=== PATIENT | female | born 1950 | race Caucasian/White ===

== ENCOUNTER → 2018-04-26 | Outpatient (CLI) | payer MEDICARE, BC ==
[~2018-04-26] MED LIST: ADVAIR 250/28 DISKU1 IH; BENADRYL25 MG PO; CRESTOR5 MG PO; FLUOCINONIDE TP; HYOMAX0.125 MG PO; LACTULOSE SYRUP1 ML PO; LEVOTHYROXIN0.137 MG PO; OMEPRAZOLE20 MG PO; PROMETRIUM200 MG PO; ULTRAM50 MG PO; ZOFRAN 4MG T4 MG/TAB PO; [UNRECOGNIZED DRUG - OTHER] PO
== END ==
LOC: MC.RAD 15:00
DX: Z12.31 Encounter for screening mammogram for malignant neoplasm of breast (principal)

== ENCOUNTER → 2019-05-23 | Outpatient (CLI) | payer MEDICARE, BC ==
[~2019-05-23] MED LIST changes: +CELEBREX 200MG200 MG PO; +CIPRO 500MG TA500 MG PO; +ELOCON0.1% TP; +FLAGYL500 MG PO; +NORCO 325 MG-51 TAB PO; +REMERON 15M15 MG/TA1 PO; +RHINOCORT0.032 MG/1 NS; +TIROSINT50 MC1 PO; +TIROSINT75 MC1 PO; +ULTRAM 50MG TAB50 MG PO
== END ==
LOC: MC.RAD 08:16
DX: Z12.31 Encounter for screening mammogram for malignant neoplasm of breast (principal); Z98.890 Other specified postprocedural states

== ENCOUNTER 2019-10-10 14:00 | Observation (INO) | payer MEDICARE, BC ==
[~2019-10-10] VITALS: Ht 165.1 cm; Wt 100.0 kg
--- NOTE | 2019-10-10 04:30 | NUR ---
Patient in bed, awake. States pain 7/10 after prn morphine. Declines medication. Denies further needs at this time. Will continue to monitor.
[2019-10-10 14:59] VITALS: BP 158/85; PULSE 98
[2019-10-10 14:59] LABS: ALANINE AMINOTRANSFERASE 90 U/L (9-52); ALKALINE PHOSPHATASE 95 U/L (50-136); ANION GAP 9 mmol/L (7-16); AST,SGOT 95 U/L (15-37); BILIRUBIN,TOTAL 0.9 mg/dL (0.0-1.0); BLOOD UREA NITROGEN 19 mg/dL (7-17); CALCIUM 8.8 mg/dL (8.4-10.2); CARBON DIOXIDE 26 mmol/L (22-30); CHLORIDE 106 mmol/L (98-107); CREATININE, serum 0.74 (0.52-1.25); GLUCOSE 110 mg/dL (74-106); LIPASE 61 U/L (23-300); MAGNESIUM 1.7 mg/dL (1.6-2.3); POTASSIUM 3.6 mmol/L (3.4-5.0); SODIUM 141 mmol/L (137-145)
[2019-10-10 15:13] LABS: TROPONIN-I < 0.012 ng/mL (0.000-0.035)
[2019-10-10 15:21] LABS: BASO % 0.1 % (0.0-2.0); EOS % 0.2 % (0-4.0); GRAN # 7.4 (1.4-6.5); GRAN % 89.7 % (42.2-75.2); HEMATOCRIT 39.4 % (37.0-47.0); HEMOGLOBIN 12.7 g/dl (12.5-16.0); LYMPH # 0.5 (1.2-3.4); LYMPH % 6.5 % (20.0-51.0); MEAN CELL VOLUME 96 fl (80.0-100.0); MEAN CORPUSCULAR HEMOGLOBIN 31 pg (27.0-31.0); MEAN CORPUSCULAR HGB CONC 32 g/dl (33.0-37.0); MEAN PLATELET VOLUME 9.1 fl (7.4-10.4); MONO # 0.3 (0.1-0.6); MONO % 3.3 % (1.7-9.3); PLATELET COUNT 230 K/mm3 (130-400); RED BLOOD COUNT 4.12 M/mm3 (4.10-5.30); REDCELL DISTRIBUTION WIDTH-CV 16.1 % (11.5-14.5)
[2019-10-10 15:33] LABS: INR 1.1 (0.8-3.0); PROTHROMBIN TIME 12.3 SECONDS (9.7-12.8)
[2019-10-10 15:36] LABS: PARTIAL THROMBOPLASTIN TIME 29.1 SECONDS (26.0-37.0)
[2019-10-10 16:11] LABS: COLLECTION METHOD CLEAN CATCH
[2019-10-10] MEDS ORDERED: SINGULAIR 110 MG/TAB PO (16:37)
[2019-10-10] MEDS ORDERED: PAXIL 10MG10 MG PO (16:38)
[2019-10-10] MEDS ORDERED: VITAMIN B COMPL1 SGL PO (16:38)
[2019-10-10] MEDS ORDERED: TOBRADEX EYE DRO5 ML OS (16:39)
[2019-10-10] MEDS ORDERED: MELATONIN3 M1 (16:39)
[2019-10-10] MEDS ORDERED: DHEA 50 MG TAB1 EACH PO (16:39)
[2019-10-10] MEDS ORDERED: MSM1000 MG (16:40)
[2019-10-10] MEDS ORDERED: MULTI VITAMINS1 TAB PO (16:41)
[2019-10-10] MEDS ORDERED: VITAMIND3 5000 (16:41)
[2019-10-10] MEDS ORDERED: PROBIOTIC FORMU1 CAP PO (16:41)
[2019-10-10 17:16] LABS: PH 6 (5-8); SQUAMOUS EPITHELIAL 0-2 /hpf; URINE APPEARANCE Hazy; URINE BACTERIA None Seen /hpf; URINE BILIRUBIN Negative (NEGATIVE); URINE BLOOD Negative (NEGATIVE); URINE COLOR Yellow; URINE GLUCOSE Negative (NEGATIVE); URINE KETONE Negative (NEGATIVE); URINE LEUKOCYTE ESTERASE Negative (NEGATIVE); URINE NITRATE Negative (NEGATIVE); URINE PROTEIN(semi-quant) Negative (NEGATIVE); URINE RBC 0-2 /hpf; URINE UROBILINOGEN Negative (NEGATIVE)
--- NOTE | 2019-10-10 19:22 | NUR ---
1820: Patient admitted to room 351 from ER. Upon arival A/o x 4. C/O ABD pain bilateral low quadrants rating at 5 on 0-10 numerical pain scale. See EMAR for medication administered. Medications, allergies, and reason for hospitalization reviewed with patient. All questions and concerns addressed. Oriented to room. Telemetry monitoring in place as ordered.
[2019-10-10 20:00] VITALS: BP 126/58; PULSE 98; TEMP 99.1
--- NOTE | 2019-10-10 20:00 | NUR ---
Shift assessment complete. Patient in bed, awake. States pain 8/10 in abdomen. Prn pain medication given. Denies further needs at this time. Will continue to monitor.
--- NOTE | 2019-10-10 22:07 | NUR ---
Patient complaining of level 6 pain to abdomen. Spoke to primary nurse and agreed that patient could have PRN Morphine. Given per orders as requested at this time.
[2019-10-11 03:37] VITALS: BP 116/60; PULSE 97; TEMP 99.2
[2019-10-11 07:37] LABS: BASO % 0.2 % (0.0-2.0); EOS % 0.4 % (0-4.0); GRAN # 6.9 (1.4-6.5); GRAN % 82.2 % (42.2-75.2); HEMOGLOBIN 11.2 g/dl (12.5-16.0); LYMPH % 11.8 % (20.0-51.0); MEAN CELL VOLUME 97 fl (80.0-100.0); MEAN CORPUSCULAR HEMOGLOBIN 30 pg (27.0-31.0); MEAN CORPUSCULAR HGB CONC 31 g/dl (33.0-37.0); MEAN PLATELET VOLUME 9.5 fl (7.4-10.4); MONO # 0.4 (0.1-0.6); PLATELET COUNT 202 K/mm3 (130-400); RED BLOOD COUNT 3.69 M/mm3 (4.10-5.30); REDCELL DISTRIBUTION WIDTH-CV 16.3 % (11.5-14.5)
[2019-10-11 07:50] LABS: CALCIUM 8.4 mg/dL (8.4-10.2); CREATININE, serum 0.84 (0.52-1.25); POTASSIUM 3.8 mmol/L (3.4-5.0)
[2019-10-11 07:51] VITALS: BP 105/56; PULSE 98; TEMP 99.1
[2019-10-11 07:52] LABS: HEMATOCRIT 35.7 % (37.0-47.0)
[2019-10-11 11:34] VITALS: BP 124/58; PULSE 89; TEMP 98.4
[2019-10-11 11:39] VITALS: BP 124/58
--- NOTE | 2019-10-11 14:17 | NUR ---
MAHAMED met with the patient and her , Braden (ph#[phone]), to discuss discharge plan. The patient lives in [place] with her . She reports independence with ADLs and has a cane, walker, and wheelchair available if needed. The patient's PCP is Dr. Anthony Thornton and she receives her medications at [facility] and by the mail through [facility]. She reports no difficulties obtaining her meds. The patient does not have advanced directives completed, but she was interested in obtaining a form for DPOA-HC. MAHAMED provided. The patient plans to return home with her upon discharge. No additional needs at this time.
--- NOTE | 2019-10-11 14:31 | NUR ---
First visit from the tip printer. No needs right now.
[2019-10-11 16:13] VITALS: BP 117/58; PULSE 91; TEMP 98
--- NOTE | 2019-10-11 20:00 | NUR ---
Received report from CRISTINA Chang. Assessment complete. Alert and oriented. Denies any pain at this time. Indepedent with self care. Meds administered. Tele monitor in place, leads checked. IV to LAC intact, dressing CDI, fluids infusing. Needs attended too. Call light within reach. Assisted pt to prepare for shower.
[2019-10-11 20:11] VITALS: BP 109/52; PULSE 93; TEMP 98.3
[2019-10-12 00:52] VITALS: BP 114/52; PULSE 92; TEMP 99.3
[2019-10-12 05:06] VITALS: BP 131/68; PULSE 92; TEMP 98.8
--- NOTE | 2019-10-12 06:22 | NUR ---
Pt had no complaints during this shift. Spo2 89% on RA, placed on 1LO2 NC then SpO2 94%, without SOB or difficulty breathing. Needs met. Call light within reach. LAC DC while NS infusing, site leaking and removed. Restarted IV to LW and restarted fluids. Pt tolerated well.
--- NOTE | 2019-10-12 07:13 | NUR ---
Report given to CRISTINA Alcantara.
[2019-10-12 07:27] LABS: EOS # 0.2 (0.0-0.7); EOS % 2.5 % (0-4.0); GRAN # 5.4 (1.4-6.5); GRAN % 79.1 % (42.2-75.2); HEMOGLOBIN 10.7 g/dl (12.5-16.0); LYMPH # 0.8 (1.2-3.4); LYMPH % 12.1 % (20.0-51.0); MEAN CELL VOLUME 97 fl (80.0-100.0); MEAN CORPUSCULAR HEMOGLOBIN 31 pg (27.0-31.0); MEAN CORPUSCULAR HGB CONC 32 g/dl (33.0-37.0); MEAN PLATELET VOLUME 9.5 fl (7.4-10.4); MONO # 0.4 (0.1-0.6); MONO % 5.7 % (1.7-9.3); PLATELET COUNT 201 K/mm3 (130-400); RED BLOOD COUNT 3.48 M/mm3 (4.10-5.30); REDCELL DISTRIBUTION WIDTH-CV 16.4 % (11.5-14.5)
[2019-10-12 07:28] LABS: HEMATOCRIT 33.8 % (37.0-47.0)
[2019-10-12 07:32] LABS: CALCIUM 8.6 mg/dL (8.4-10.2); CREATININE, serum 0.72 (0.52-1.25); POTASSIUM 4.2 mmol/L (3.4-5.0)
[2019-10-12 08:59] VITALS: BP 129/57; PULSE 83; TEMP 98.5
--- NOTE | 2019-10-12 09:26 | NUR ---
Pt sitting on edge of bed eating breakfast upon entry, some C/O pain in her abdominal area, shift assessments complete, left Pt call light in reach, bed in lowest position.
[2019-10-12] MEDS ORDERED: MIRALAX238G PO (09:36)
[2019-10-12] MEDS ORDERED: FLAGYL500 MG PO (09:38)
[2019-10-12] MEDS ORDERED: CIPRO 500MG TA500 MG PO (09:38)
--- NOTE | 2019-10-12 16:16 | NUR ---
Pt discharged to home, discharge packed discussed with Pt, questions answered, Pt escorted to entrance via WC, left with spouse in private transportation.
== END 2019-10-12 16:18 | disposition home or self-care (01) ==
LOC: COL.ER 14:00 → MEDICAL 16:30
PROVIDERS: Emergency Medicine; Physician Assistant; ADMIT Student in an Organized Health Care Education/Training Program
DX: I95.1 Orthostatic hypotension (principal); E78.5 Hyperlipidemia, unspecified; E03.9 Hypothyroidism, unspecified; F32.9 Major depressive disorder, single episode, unspecified; J45.909 Unspecified asthma, uncomplicated; K57.32 Diverticulitis of large intestine without perforation or abscess without bleeding; I08.1 Rheumatic disorders of both mitral and tricuspid valves; Z88.5 Allergy status to narcotic agent; Z90.710 Acquired absence of both cervix and uterus; Z85.828 Personal history of other malignant neoplasm of skin; Z87.891 Personal history of nicotine dependence
CPT/HCPCS: 99232-AI; A4216; G0378; J0696; J1650; J2270; J2405; J7030; Q9967

== ENCOUNTER 2019-11-23 15:51 | Inpatient (IN) | payer MEDICARE, BC ==
[~2019-11-23] VITALS: Ht 167.6 cm; Wt 97.8 kg
[~2019-11-23 15:51] MED LIST changes: +DHEA 50 MG TAB1 EACH PO; +MELATONIN3 M1; +MIRALAX238G PO; +MSM1000 MG PO; +MULTI VITAMINS1 TAB PO; +PAXIL 10MG10 MG PO; +PROBIOTIC FORMU1 CAP PO; +SINGULAIR 110 MG/TAB PO; +TOBRADEX EYE DRO5 ML OS; +VITAMIN B COMPL1 SGL PO; +VITAMIND3 5000
[2020-01-16] VITALS (12 sets, daily range): BP systolic 112–145; BP diastolic 45–85; PULSE 58–95; TEMP 97.5–98.6
[2020-01-16] MEDS ORDERED: RT ADVAIR HFA 1112 G IH (11:57)
[2020-01-16] MEDS ORDERED: ALBUTEROL SULFAT3 M3 IH (11:58)
[2020-01-16] MEDS ORDERED: BENADRYL25 M2 PO (11:58)
[2020-01-16] MEDS ORDERED: CELEBREX 200MG200 MG PO (11:59)
[2020-01-16] MEDS ORDERED: CEPHALEXIN500 M1 PO (12:00)
[2020-01-16] MEDS ORDERED: SYNTHROID0.075 MG/T PO (12:01)
[2020-01-16] MEDS ORDERED: SYNTHROID0.05 MG/TA PO (12:05)
[2020-01-16] MEDS ORDERED: EPA FISH OIL1000 MG PO (12:17)
[2020-01-16] MEDS ORDERED: OSTEO-BI-FLEX 21 TAB PO (12:18)
[2020-01-16] MEDS ORDERED: PREGNENOLONE PO (12:20)
[2020-01-16] MEDS ORDERED: [UNRECOGNIZED DRUG - MIXTURE] PO (12:21)
[2020-01-16] MEDS ORDERED: NATURAL GINKGO500 MG PO (12:22)
[2020-01-16] MEDS ORDERED: [UNRECOGNIZED DRUG - OTHER] PO (12:22)
[2020-01-16] MEDS ORDERED: VITAMIN C500 MG PO (12:23)
--- NOTE | 2020-01-16 19:28 | NUR ---
REPORT GIVEN TO CRISTINA MITCHELL
[2020-01-17 02:53] VITALS: BP 111/60; PULSE 88; TEMP 97.5
--- NOTE | 2020-01-17 05:10 | NUR ---
Upon coming on shift, patient states pain is 9/10 and she is nauseous. Spoke with Dr. Crowley and he ordered a change from morphine to dilaudid and to add phenergan to medication list. This was administered and patient states this was effective and brought pain to a 3/10 and stated her nausea was gone. Pain medication administered as needed throughout the night. Pain well controlled throughout the shift. Hernández draining clear, yellow urine. Lap sites x5 to abdomen are clean, dry, and intact. Patient has had good oral intake this shift and IV fluids are capped per orders. Patient's oxygen saturations drop to 88-89% when sleeping and is a mouth breather. 1L of oxygen via oxymask administered throughout the night. Patient educated on the importance of early ambulation. Will continue to monitor patient.
[2020-01-17 06:06] LABS: BASO % 0.1 % (0.0-2.0); GRAN # 6.4 (1.4-6.5); HEMOGLOBIN 11.4 g/dl (12.5-16.0); LYMPH # 0.8 (1.2-3.4); LYMPH % 10.5 % (20.0-51.0); MEAN CELL VOLUME 97 fl (80.0-100.0); MEAN CORPUSCULAR HEMOGLOBIN 31 pg (27.0-31.0); MEAN CORPUSCULAR HGB CONC 32 g/dl (33.0-37.0); MEAN PLATELET VOLUME 8.6 fl (7.4-10.4); MONO # 0.6 (0.1-0.6); PLATELET COUNT 238 K/mm3 (130-400); RED BLOOD COUNT 3.71 M/mm3 (4.10-5.30); REDCELL DISTRIBUTION WIDTH-CV 15.8 % (11.5-14.5)
[2020-01-17 06:12] LABS: CALCIUM 8.7 mg/dL (8.4-10.2); CREATININE, serum 0.85 (0.52-1.25); MAGNESIUM 2.1 mg/dL (1.6-2.3); PHOSPHOROUS 4.3 mg/dL (2.5-4.5); POTASSIUM 4.6 mmol/L (3.4-5.0)
[2020-01-17 06:14] LABS: HEMATOCRIT 36.1 % (37.0-47.0)
--- NOTE | 2020-01-17 08:00 | NUR ---
Patient resting in bed at this time, call light within reach. Patient reports pain is well controlled, no nausea or vomiting present. Patient reports that she has a gluten allergy and cannot eat her breakfast. Called the kitchen to place a new order and inform them of her food allergy. Patient denies further needs at this time, call light within reach.
[2020-01-17 08:44] VITALS: BP 119/72; PULSE 86; TEMP 98.2
--- NOTE | 2020-01-17 10:43 | NUR ---
Thermostat Machine Tender met with patient to discuss discharge planning. Patient lives in [place] with her Braden (ph#[phone]) and also has a daughter Edel (ph#[phone]). Patient sees Dr. Thornton for primary care and has medications mailed to her home from [facility]. Patient also utilizes [employer] as needed. Patient states she uses a nebulizer at home but not home oxygen, even though she is currently on oxygen. Patient states it's because she did not get her asthma medication last night. Patient reports independence with ADLS and plans to return home upon discharge. SW to continue to follow.
--- NOTE | 2020-01-17 12:02 | NUR ---
First visit from the paper control clerk. No needs right now.
[2020-01-17 13:58] VITALS: BP 118/55; PULSE 86; TEMP 97.8
--- NOTE | 2020-01-17 17:00 | NUR ---
INT to left hand infiltrated, new IV placed in left AC with one attempt, patient tolerated procedure well. Patient c/o 7/10 pain, administered PRN pain medication per order. Patient denies further needs at this time, call light within reach.
[2020-01-17 17:03] VITALS: BP 124/70; PULSE 84; TEMP 98.3
[2020-01-17 19:23] VITALS: BP 118/61; PULSE 81; TEMP 97.8
--- NOTE | 2020-01-17 19:52 | NUR ---
Report was given by CRISTINA Walker. Pt is currently sitting in bed. Pt lungs sounds were clear and heart sounds were normal S1 and S2 sounds. Pt bowel sounds were hypoactive in all quads. Pt did state that she was passing gas. Pt did state that she doesn't have any concerns at this time. Pt is currently sitting in bed watching tele[place]. Pt has her call light within reach and her bed is in lowest position.
[2020-01-18] VITALS (7 sets, daily range): BP systolic 110–129; BP diastolic 58–72; PULSE 67–88; TEMP 97.6–98.6
[2020-01-18 06:05] LABS: BASO % 0.2 % (0.0-2.0); EOS # 0.1 (0.0-0.7); EOS % 1.9 % (0-4.0); GRAN # 3.8 (1.4-6.5); GRAN % 59.8 % (42.2-75.2); HEMOGLOBIN 10.6 g/dl (12.5-16.0); LYMPH % 31.3 % (20.0-51.0); MEAN CELL VOLUME 96 fl (80.0-100.0); MEAN CORPUSCULAR HEMOGLOBIN 32 pg (27.0-31.0); MEAN CORPUSCULAR HGB CONC 33 g/dl (33.0-37.0); MEAN PLATELET VOLUME 8.9 fl (7.4-10.4); MONO # 0.4 (0.1-0.6); MONO % 6.5 % (1.7-9.3); PLATELET COUNT 218 K/mm3 (130-400); RED BLOOD COUNT 3.37 M/mm3 (4.10-5.30); REDCELL DISTRIBUTION WIDTH-CV 15.8 % (11.5-14.5)
[2020-01-18 06:10] LABS: HEMATOCRIT 32.3 % (37.0-47.0)
[2020-01-18 06:22] LABS: CALCIUM 8.3 mg/dL (8.4-10.2); CREATININE, serum 0.97 (0.52-1.25); MAGNESIUM 1.9 mg/dL (1.6-2.3); PHOSPHOROUS 4.8 mg/dL (2.5-4.5); POTASSIUM 4.2 mmol/L (3.4-5.0)
--- NOTE | 2020-01-18 07:30 | NUR ---
Pt has slept well during the night. Pt has had no complaints of pain during the night. Pt did have one time where she was incontinent of a bowel movement. Pt linens were changed and pt ambulated to the restroom and back to bed. Pt was a standby assist. Pt has her call light within reach and her bed is in lowest position.
--- NOTE | 2020-01-18 13:30 | NUR ---
Pt reported some mild nausea. PRN nausea medication was provided with scheduled toradol and neurontin. Encouraged rest. Call light is in reach. Will continue to monitor.
--- NOTE | 2020-01-18 15:52 | NUR ---
Patient is now napping comfortably. Will continue to monitor.
--- NOTE | 2020-01-18 17:21 | NUR ---
Pt has had a good day. She ambulated to the rest 5+ times with bloody loose stool. Hernández continues to be patent draining clear yellow urine. Scheduled toradol and tylenol ES hav emanaged to cover pain well throughout the day. She did get PRN nausea medication and requested it prior to the earliest time she could recieve it but was okay with waiting. She has had no other complaints throughout the day. No other needs call light is in reach.
--- NOTE | 2020-01-18 20:00 | NUR ---
Received report from CRISTINA Colin. Pt was lying in bed sleeping at the time. Pt has her call light within reach and her bed is in lowest position.
[2020-01-19] VITALS (7 sets, daily range): BP systolic 120–412; BP diastolic 49–83; PULSE 72–93; TEMP 97.6–98.3
--- NOTE | 2020-01-19 03:50 | NUR ---
Pt has has had a good night. Pt did call out around 2129 requesting something for nausea. Pt was given Zofran at this time. Pt also go up and went to the bathroom at this time. Pt had a bowel movement at this time. Hernández still in place flowing yellow urine. Pt has been drinking fluids well. Pt is currently sleeping in bed and her call light is within reach.
--- NOTE | 2020-01-19 05:47 | NUR ---
While during hourly rounds I noticed the patient had a spot of blood on her gown. Pt was laying on her IV and the IV had come out. Pt stated that she was having nausea this morning so I attempted one to get a IV started in her right AC but was not sucessful. CRISTINA Mitchell was able to get an IV in her left forearm. Pt was given Zofran at this time for nausea. Pt is now resting in bed with her call light within reach.
--- NOTE | 2020-01-19 07:04 | NUR ---
Reported off to CRISTINA Carlson. Pt lying in bed awake. Pt has her call light within reach and her bed is in lowest position.
--- NOTE | 2020-01-19 07:29 | NUR ---
REPORT FROM CAMRON EVANS.
[2020-01-19 08:31] LABS: BASO % 0.1 % (0.0-2.0); EOS # 0.1 (0.0-0.7); EOS % 1.9 % (0-4.0); GRAN # 4.8 (1.4-6.5); GRAN % 69.8 % (42.2-75.2); HEMOGLOBIN 11.6 g/dl (12.5-16.0); LYMPH # 1.5 (1.2-3.4); LYMPH % 22.1 % (20.0-51.0); MEAN CELL VOLUME 97 fl (80.0-100.0); MEAN CORPUSCULAR HEMOGLOBIN 31 pg (27.0-31.0); MEAN CORPUSCULAR HGB CONC 32 g/dl (33.0-37.0); MEAN PLATELET VOLUME 8.8 fl (7.4-10.4); MONO # 0.4 (0.1-0.6); MONO % 5.7 % (1.7-9.3); PLATELET COUNT 232 K/mm3 (130-400); RED BLOOD COUNT 3.75 M/mm3 (4.10-5.30); REDCELL DISTRIBUTION WIDTH-CV 16.1 % (11.5-14.5)
[2020-01-19 08:39] LABS: HEMATOCRIT 36.3 % (37.0-47.0)
[2020-01-19 08:49] LABS: ALBUMIN 3.3 gm/dL (3.5-5.0); CALCIUM 8.5 mg/dL (8.4-10.2); CREATININE, serum 0.72 (0.52-1.25); PHOSPHOROUS 3.9 mg/dL (2.5-4.5); POTASSIUM 4.3 mmol/L (3.4-5.0)
[2020-01-19] MEDS ORDERED: NEURONTIN100 MG/CAP PO (11:42)
[2020-01-19] MEDS ORDERED: ROXICODONE 55 MG/TAB PO (11:42)
--- NOTE | 2020-01-19 13:43 | NUR ---
VOGT CATHETER DISCONTINUED PER ORDERS. TIP INTACT PT TOLERATED WELL.
[2020-01-20 00:34] VITALS: BP 127/72; PULSE 82; TEMP 98.4
[2020-01-20 04:12] VITALS: BP 169/82; PULSE 88; TEMP 98.2
--- NOTE | 2020-01-20 06:00 | NUR ---
Patient alert and oreinted. Lap sites clean dry well approximated. Patient has been up walking the hallways this shift. Patient reports being able to pass gas and has had a bowel movement. Patient has not required additional pain medication, just scheduled Tylenol. Patient did report feeling nauseas at 330 this morning. Zofran given, patient states only a small amount of relief provided. Patient has been afebrile this shift.
[2020-01-20 07:41] VITALS: BP 156/86; PULSE 87; TEMP 99
--- NOTE | 2020-01-20 08:00 | NUR ---
Patient resting in bed eating breakfast at this time. Patient denies pain or needs, states that she is expecting to be discharged today, but her daughter will not be able to pick her up until after 1700; assure patient that this will be passed on. Patient denies further needs, call light within reach.
[2020-01-20 11:51] VITALS: BP 157/87; PULSE 87; TEMP 98.6
[2020-01-20 15:42] VITALS: BP 157/83; PULSE 81; TEMP 98
--- NOTE | 2020-01-20 16:30 | NUR ---
Discharge teaching completed. Discussed discharge instructions, follow up appointment, and discharge medication. INT removed, catheter intact, hemostasis achieved. Patient taken to ED entrance via wheelchair where she entered a private vehicle.
== END 2020-01-20 16:35 | disposition home or self-care (01) | DRG 331 ==
LOC: SURG 12-12 13:00 → OR 01-16 11:10 → SURG 01-16 12:30 → JCC 01-16 17:14
PROVIDERS: ADMIT Surgery
PROC: 4A1BXSH Monitoring of Gastrointestinal Vascular Perfusion using Indocyanine Green Dye, External Approach (ICD-10-PCS; 2020-01-16)
PROC: 8E0W4CZ Robotic Assisted Procedure of Trunk Region, Percutaneous Endoscopic Approach (ICD-10-PCS; 2020-01-16)
PROC: 0DTN4ZZ Resection of Sigmoid Colon, Percutaneous Endoscopic Approach (ICD-10-PCS; principal; 2020-01-16 12:30)
DX: K57.32 Diverticulitis of large intestine without perforation or abscess without bleeding (principal); Z20.828 Contact with and (suspected) exposure to other viral communicable diseases; Z87.891 Personal history of nicotine dependence; Z90.710 Acquired absence of both cervix and uterus; Z90.89 Acquired absence of other organs
CPT/HCPCS: A4314; A9284; J0690; J1100; J1170; J1650; J1885; J2270; J2370; J2405; J2550; J2704; J3010; J7120

== ENCOUNTER 2021-01-27 16:06 | Emergency (ER) | payer MEDICARE, BC ==
[~2021-01-27] VITALS: Ht 165.1 cm; Wt 109.1 kg
[~2021-01-27 16:06] MED LIST changes: +ALBUTEROL SULFAT3 M3 IH; +BENADRYL25 M2 PO; +CEPHALEXIN500 M1 PO; +EPA FISH OIL1000 MG PO; +NATURAL GINKGO500 MG PO; +NEURONTIN100 MG/CAP PO; +OSTEO-BI-FLEX 21 TAB PO; +PREGNENOLONE PO; +ROXICODONE 55 MG/TAB PO; +RT ADVAIR HFA 1112 G IH; +SYNTHROID0.05 MG/TA PO; +SYNTHROID0.075 MG/T PO; +VITAMIN C500 MG PO; +[UNRECOGNIZED DRUG - MIXTURE] PO; +[UNRECOGNIZED DRUG - OTHER] PO
[2021-01-27 16:27] VITALS: PULSE 90; TEMP 98.2
[2021-01-27 17:47] LABS: ALANINE AMINOTRANSFERASE 31 U/L (4-34); ALBUMIN 4.3 gm/dL (3.5-5.0); ALKALINE PHOSPHATASE 86 U/L (50-136); ANION GAP 6 mmol/L (7-16); AST,SGOT 35 U/L (15-37); BILIRUBIN,TOTAL 0.4 mg/dL (0.0-1.0); BLOOD UREA NITROGEN 27 mg/dL (7-17); CALCIUM 9.3 mg/dL (8.4-10.2); CARBON DIOXIDE 33 mmol/L (22-30); CHLORIDE 101 mmol/L (98-107); CREATININE, serum 0.88 (0.52-1.25); GLUCOSE 96 mg/dL (74-106); POTASSIUM 4.1 mmol/L (3.4-5.0); SODIUM 139 mmol/L (137-145); TOTAL PROTEIN 7.5 gm/dL (6.4-8.2)
[2021-01-27 18:01] LABS: BASO % 0.4 % (0.0-2.0); EOS # 0.4 (0.0-0.7); EOS % 4.6 % (0-4.0); GRAN # 4.9 (1.4-6.5); GRAN % 61.2 % (42.2-75.2); HEMOGLOBIN 13.8 g/dl (12.5-16.0); LYMPH # 2.1 (1.2-3.4); LYMPH % 25.6 % (20.0-51.0); MEAN CELL VOLUME 96 fl (80.0-100.0); MEAN CORPUSCULAR HEMOGLOBIN 32 pg (27.0-31.0); MEAN CORPUSCULAR HGB CONC 33 g/dl (33.0-37.0); MEAN PLATELET VOLUME 8.9 fl (7.4-10.4); MONO # 0.7 (0.1-0.6); PLATELET COUNT 301 K/mm3 (130-400); RED BLOOD COUNT 4.38 M/mm3 (4.10-5.30); REDCELL DISTRIBUTION WIDTH-CV 15.4 % (11.5-14.5)
[2021-01-27 18:06] LABS: TROPONIN-I < 0.012 ng/mL (0.000-0.035)
[2021-01-27 21:29] LABS: TROPONIN-I < 0.012 ng/mL (0.000-0.035)
[2021-01-27 21:57] VITALS: BP 167/81
== END 2021-01-27 21:59 | disposition home or self-care (01) ==
LOC: COL.ER 16:06
PROVIDERS: Emergency Medicine; Nurse Practitioner
DX: R06.02 Shortness of breath (principal); E66.9 Obesity, unspecified; Z20.822 Contact with and (suspected) exposure to COVID-19; Z87.891 Personal history of nicotine dependence; Z79.51 Long term (current) use of inhaled steroids
CPT/HCPCS: Q9967

== ENCOUNTER 2021-10-12 20:40 | Emergency (ER) | payer MEDICARE, BC ==
[~2021-10-12] VITALS: Ht 165.1 cm; Wt 113.6 kg
[2021-10-12] MEDS ORDERED: NORCO 325 MG-51 TAB PO (22:12)
[2021-10-12 22:25] VITALS: BP 154/79; PULSE 89; TEMP 97.5
== END 2021-10-12 22:25 | disposition home or self-care (01) ==
LOC: COL.ER 20:40
DX: S49.91XA Unspecified injury of right shoulder and upper arm, initial encounter (principal); E78.5 Hyperlipidemia, unspecified; F32.A Depression, unspecified; J45.909 Unspecified asthma, uncomplicated; E03.9 Hypothyroidism, unspecified; Z88.5 Allergy status to narcotic agent; Z79.890 Hormone replacement therapy; Z79.899 Other long term (current) drug therapy; W01.0XXA Fall on same level from slipping, tripping and stumbling without subsequent striking against object, initial encounter; Y92.481 Parking lot as the place of occurrence of the external cause

== ENCOUNTER → 2022-01-02 | Outpatient (CLI) | payer MEDICARE, BC | LOC: COL.VAS 13:02 | DX: R06.02 Shortness of breath (principal) ==